=== PATIENT | male | born 1940 | race Caucasian/White ===

== ENCOUNTER 2019-02-05 06:55 | Day surgery (SDC) | payer MEDICARE ==
[~2019-02-05 06:55] MED LIST: ACETAMINOPHEN 1,000 MG/100 ML BTL IVPB ONE; CEFAZOLIN 2 Gram 2 GM/50 ML BAG IVPB ONE
[2019-02-05] MEDS ORDERED: DEXAMETHASONE 4 MG/ML 1ML VIAL IVP ONE (06:56)
[2019-02-05] MEDS ORDERED: ROPIVACAINE HCL (NAROPIN) /PF 5MG/ML 20ML VIAL IV ONE (06:56)
[2019-02-05] MEDS ORDERED: LIDOCAINE 2% MDV (20MG/ML) 20ML VIAL IV ONE (06:56)
[2019-02-05] MEDS ORDERED: ONDANSETRON HCL IV 4 MG/2 ML VIAL IVP ONE (06:56)
[2019-02-05] MEDS ORDERED: PROPOFOL 10 MG/ML VIAL IV ONE (06:56)
[2019-02-05] MEDS ORDERED: SEVOFLURANE 250 ML INH ONE (06:56)
[2019-02-05] MEDS ORDERED: KETOROLAC 30 MG/ML VIAL IVP ONE (06:56)
[2019-02-05] MEDS ORDERED: MIDAZOLAM HCL 2MG/2ML VIAL IV ONE (06:56)
[2019-02-05] MEDS ORDERED: 0.9 % SODIUM CHLORIDE 1000ML 1,000 ML IV ONE (07:45)
[2019-02-05] MEDS ORDERED: BUPIVACAINE 0.25% W/EPI MPF 30ML VIAL SQ ONE ×2 (08:43)
--- NOTE | 2019-02-06 13:10 | Operative Note ---
DATE OF SURGERY: 02/05/2019 SURGEON: Jovanny Childers DO PREOPERATIVE DIAGNOSIS: Reducible left inguinal hernia. POSTOPERATIVE DIAGNOSIS: Reducible left inguinal hernia, direct. OPERATION: Open left inguinal herniorrhaphy with mesh. PROCEDURE: The patient is a 78-year-old male who was brought to the operating room and placed in a supine position. General anesthesia was administered per the department of anesthesia. The patient's left inguinal region was prepped and draped in a sterile fashion. He underwent a preoperative inguinal block per department of anesthesia. At this time, the skin was anesthetized with an additional 5 mL of 0.25% Sensorcaine with epinephrine. A 4 cm oblique incision was made. This was carried down through Darrell layer to the aponeurosis of the external oblique. This was cleaned off. A kosta was made with a scalpel blade and enlarged through the superficial inguinal ring with Metzenbaum scissors. Care was taken not to injure the underlying ilioinguinal nerve or spermatic cord. Superior and inferior flaps were developed and a [place] was placed on the spermatic cord. This was dissected free from the underlying direct hernia. Cremasteric fibers were taken down. There was no indirect hernia, no cord lipoma noted. The patient had a whereagb-sk-exrhm size direct hernia noted. This was reduced. A large plug was placed in the direct space. This was sutured in with 2-0 Vicryl. The floor was imbricated with 0 Vicryl. A left-sided ProGrip mesh was obtained. This was placed in the floor of the inguinal canal with excellent overlap of the pubic tubercle. Sutures went at the level of pubic tubercle, the second portion of the inguinal ligament, and the aponeurosis of the internal oblique. At this time, the external oblique aponeurosis closed over the cord with 2-0 Vicryl, the Darrell layer was closed with 3-0 Vicryl, and skin was closed with 4-0 Vicryl. The patient was taken to the recovery room in stable condition. FINDINGS ON SURGERY: Left inguinal hernia, direct, repaired as above. MTDD
== END 2019-02-05 10:10 | disposition home or self-care (01) ==
LOC: SUR 06:55
PROVIDERS: ATTEND Surgery
DX: K40.90 Unilateral inguinal hernia, without obstruction or gangrene, not specified as recurrent (principal); I48.91 Unspecified atrial fibrillation; Z79.01 Long term (current) use of anticoagulants; M19.90 Unspecified osteoarthritis, unspecified site; I10 Essential (primary) hypertension; N40.0 Benign prostatic hyperplasia without lower urinary tract symptoms; M10.9 Gout, unspecified; I25.10 Atherosclerotic heart disease of native coronary artery without angina pectoris; Z95.5 Presence of coronary angioplasty implant and graft; C73 Malignant neoplasm of thyroid gland
CPT/HCPCS: 76942; J1885; J2405; J7030